=== PATIENT | male | born 1970 | race Caucasian/White ===

== ENCOUNTER → 2023-03-30 | Outpatient (REF) | payer OTHER | LOC: M SFHCRHEU 08:26 | PROVIDERS: ATTEND Internal Medicine Rheumatology | DX: M47.899 Other spondylosis, site unspecified (principal); R20.0 Anesthesia of skin; Z72.0 Tobacco use; G56.03 Carpal tunnel syndrome, bilateral upper limbs; Z53.8 Procedure and treatment not carried out for other reasons ==

== ENCOUNTER → 2023-07-28 | Outpatient (CLI) | payer OTHER, BC | LOC: M SOG 13:37 | PROVIDERS: ATTEND Physician Assistant | DX: M25.532 Pain in left wrist (principal); M25.531 Pain in right wrist; M19.031 Primary osteoarthritis, right wrist; M19.032 Primary osteoarthritis, left wrist ==

== ENCOUNTER → 2024-01-05 | Outpatient (REF) | payer BC, OTHER | LOC: M SFHCRHEU 11:44 | PROVIDERS: ATTEND Internal Medicine Rheumatology | DX: M47.899 Other spondylosis, site unspecified (principal); R20.0 Anesthesia of skin; Z72.0 Tobacco use ==